=== PATIENT | male | born 1965 | race Caucasian/White ===

== ENCOUNTER 2016-12-03 13:37 | Emergency (ER) | payer OTHER ==
[2016-12-03] MEDS ORDERED: MAGNESIUM SULF (ER) 100 ML IV ONE ×2 (16:38→17:46)
[2016-12-03] MEDS ORDERED: LACT RINGERS 1,000 ML IV ONE (16:41)
== END 2016-12-03 21:10 | disposition home or self-care (01) ==
LOC: ER 13:37
DX: I95.9 Hypotension, unspecified (principal); E83.42 Hypomagnesemia; Z79.899 Other long term (current) drug therapy
CPT/HCPCS: 36415; 80053; 82553; 82947; 83735; 84439; 84443; 84484; 85025; 85379; 93005; 96361; 96365; 96375; 99285; J7120